=== PATIENT | male | born 1970 | race American Indian/Alaskan Native ===

== ENCOUNTER 2020-10-24 08:29 | Emergency (ER) | payer SELFPAY ==
[2020-10-24 08:45] VITALS: BP 124/76
--- NOTE | 2020-10-24 09:12 | XRay Report ---
LEFT KNEE 3 VIEWS INDICATION: pain, swelling. COMPARISON: None. IMPRESSION: Normal bone mineralization. No acute osseous abnormality is detected. Mild retropatellar spurring and tibial spine spurring is noted. No advanced osteoarthritic changes. A moderate joint e ffusion is suspected on the lateral image. Signer Name: Manuel Dowd Jr, MD Signed: 10/24/2020 9:07 AM Workstation Name: [id number]
--- NOTE | 2020-10-24 10:47 | Emergency Department Report ---
ED Extremity Problem HPI - General Chief complaint: Extremity Problem,Nontraumatic Stated complaint: LFT KNEE SWELLING/PAIN Time Seen by Provider: 10/24/20 10:43 Source: patient Mode of arrival: Ambulatory Limitations: No Limitations - History of Present Illness Initial comments: Patient is a 49-year-old male who presents emergency room with complaints of left knee pain and swelling that began a few days ago. He states that he has had this recurrently over the last 5 years. He states that 3 years ago he saw an orthopedic doctor and had a cortisone injection in the knee. 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 He denies any fall or injury. He denies any numbness or weakness. He is ambulatory. He states his only past medical history is a spinal surgery. No allergies to medications. - Related Data Previous Rx's Medication Instructions Recorded Last Taken Type Naproxen [EC-Naproxen] 500 mg PO BID PRN #14 tablet. 10/24/20 Unknown Rx Prednisone [predniSONE 10 mg 10 mg PO .TAPER #1 tab.ds.pk 10/24/20 Unknown Rx (6-Day Pack, 21 Tabs)] Allergies Allergy/AdvReac Type Severity Reaction Status Date / Time No Known Allergies Allergy Unverified 10/24/20 08:46 ED Review of Systems ROS: Stated complaint: LFT KNEE SWELLING/PAIN Other details as noted in HPI Comment: All other systems reviewed and negative ED Past Medical Hx - Past Medical History Previous Medical History?: No - Surgical History Past Surgical History?: Yes - Medications Home Medications: Home Medications Medication Instructions Recorded Confirmed Last Taken Type Naproxen [EC-Naproxen] 500 mg PO BID PRN #14 tablet. 10/24/20 Unknown Rx Prednisone [predniSONE 10 mg 10 mg PO .TAPER #1 tab.ds.pk 10/24/20 Unknown Rx (6-Day Pack, 21 Tabs)] ED Physical Exam - General Limitations: No Limitations General appearance: alert, in no apparent distress - Head Head exam: Present: atraumatic, normocephalic - Eye Eye exam: Present: normal appearance - ENT ENT exam: Present: mucous membranes moist - Respiratory Respiratory exam: Absent: respiratory distress, accessory muscle use - Extremities Exam Extremities exam: Present: other (moderate edema to the left knee, there is generalized ttp, no erythema, no increased warmth, no skin changes, FROM of the LLE, pt is able to flex the knee greater than 90 degrees, neurovasculalry intact, no swelling down the leg, no calf ttp) - Neurological Exam Neurological exam: Present: alert, oriented X3 - Psychiatric Psychiatric exam: Present: normal affect, normal mood - Skin Skin exam: Present: warm, dry, intact ED Course Vital Signs 10/24/20 08:44 Temperature 97.8 F Pulse Rate 65 Respiratory 16 Rate Blood Pressure 124/76 [Right] O2 Sat by Pulse 97 Oximetry ED Medical Decision Making - Radiology Data Radiology results: report reviewed Ordering Physician: LITO PACHECO MD Date of Service: 10/24/20 Procedure(s): XR knee 3V LT Accession Number(s): [id number] cc: ED MD JUNIOR Fluoro Time In Minutes: LEFT KNEE 3 VIEWS INDICATION: pain, swelling. COMPARISON: None. IMPRESSION: Normal bone mineralization. No acute osseous abnormality is detected. Mild retropatellar spurring and tibial spine spurring is noted. No advanced osteoarthritic changes. A moderate joint effusion is suspected on the lateral image. Signer Name: Manuel Dowd Jr, MD Signed: 10/24/2020 9:07 AM Workstation Name: [id number] Transcribed By: TTR Dictated By: MANUEL DOWD JR, MD Electronically Authenticated By: MANUEL DOWD JR, MD Signed Date/Time: 10/24/20906 DD/ 5 TD/TT: - Medical Decision Making Patient is a 49-year-old male who presents emergency room with complaints of left knee pain and swelling that began a few days ago. He states that he has had this recurrently over the last 5 years. He states that 3 years ago he saw an orthopedic doctor and had a cortisone injection in the knee. 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 He denies any fall or injury. He denies any numbness or weakness. He is ambulatory. He states his only past medical history is a spinal surgery. No allergies to medications. vitals are normal. on exam: moderate edema to the left knee, there is generalized ttp, no erythema, no increased warmth, no skin changes, FROM of the LLE, pt is able to flex the knee greater than 90 degrees, neurovasculalry intact, no swelling down the leg, no calf ttp. XR left knee: IMPRESSION: Normal bone mineralization. No acute osseous abnormality is detected. Mild retropatellar spurring and tibial spine spurring is noted. No advanced osteoarthritic changes. A moderate joint effusion is suspected on the lateral image. Discussed all findings with patient and answered questions. Patient has no signs of gout, DVT, septic joint. He is able to flex greater than 90 degrees, does not need emergent arthrocentesis. Patient given prescription for naproxen and prednisone. Patient referred to orthopedic doctor. Advised patient Please take medication as prescribed. Please use ice for 15 minutes at a time, rest, elevation of the leg. May use an Byron wrap [id number] but do not wear too tightly and do not wear at night while sleeping. Follow-up with orthopedic doctor. Return to emergency room for new or worsening symptoms. - Differential Diagnosis Effusion, osteoarthritis, RA, gout, septic joint, knee sprain, bursitis Critical care attestation.: If time is entered above; I have spent that time in minutes in the direct care of this critically ill patient, excluding procedure time. ED Disposition Clinical Impression: Knee effusion, left, Arthritis of left knee Knee pain Qualifiers: Chronicity: acute Laterality: left Qualified Code(s): M25.562 - Pain in left knee Disposition: DC-01 TO HOME OR SELFCARE Is pt being admited?: No Does the pt Need Aspirin: No Condition: Stable Instructions: Knee Effusion, [id number], Osteoarthritis Additional Instructions: Please take medication as prescribed. Please use ice for 15 minutes at a time, rest, elevation of the leg. May use an Byron wrap [id number] but do not wear too tightly and do not wear at night while sleeping. Follow-up with orthopedic doctor. Return to emergency room for new or worsening symptoms. Prescriptions: Naproxen [EC-Naproxen] 500 mg PO BID PRN #14 tablet.dr OSB[place]NE Reason: pain Prednisone [predniSONE 10 mg (6-Day Pack, 21 Tabs)] 10 mg PO .TAPER #1 tab.ds.pk Referrals: PRESTON CORNELL MD [Staff Physician] - 2-3 Days [facility] [Provider Group] - 2-3 Days Time of Disposition: 10:46 Print Language: TAJIK
== END 2020-10-24 11:15 | disposition home or self-care (01) ==
LOC: ED 08:29
DX: M17.12 Unilateral primary osteoarthritis, left knee (principal); M25.462 Effusion, left knee; Z79.899 Other long term (current) drug therapy